=== PATIENT | female | born 1960 | race Caucasian/White ===

== ENCOUNTER → 2020-03-16 | Outpatient (CLI) | payer OTHER, SELFPAY | END | disposition home or self-care (01) | LOC: LABSPEC 17:43 | PROVIDERS: PCP Student in an Organized Health Care Education/Training Program; Referring Provider Registered Nurse; Visit Provider Registered Nurse | DX: Z20.828 Contact with and (suspected) exposure to other viral communicable diseases (principal) | CPT/HCPCS: 87635; G2023; U0003 ==

== ENCOUNTER → 2025-05-14 | Outpatient (CLI) | payer MEDICARE, SELFPAY ==
--- NOTE | 2025-05-14 11:18 | RAD_ITS ---
PROCEDURE: LUMBAR SPINE 2 OR 3 VIEWS 05/14/2025 REASON FOR EXAM: RADICULOPATHY TECHNIQUE: Procedure Code: RADSPLL Modality: DX Procedure: LUMBAR SPINE 2 OR 3 VIEWS COMPARISON: None FINDINGS: There is mild levoconvex curvature of the lumbar spine and mild anterolisthesis of L3 on L4 and minimal retrolisthesis of L4 on L5. There is degenerative disc space narrowing at L4-L5. Sacroiliac and hip joints are grossly intact. Adjacent soft tissues are unremarkable. RAD/Lumbar Spine 2 or 3 Views IMPRESSION: Degenerative disc disease and alignment abnormalities as above. Reading [facility]
--- NOTE | 2025-05-14 11:18 | RAD_ITS ---
PROCEDURE: CERV SPINE 2 OR 3 VIEWS 05/14/2025 REASON FOR EXAM: POST LAMINECTOMY SYNDROME TECHNIQUE: Procedure Code: RADSPCL Modality: DX Procedure: CERV SPINE 2 OR 3 VIEWS COMPARISON: None FINDINGS: There is straightening of the cervical lordosis and multilevel degenerative disc space narrowing, most pronounced between C3 and T1. The patient has had laminectomy between C3 and C6. Prevertebral soft tissues are unremarkable. Lung apices are clear. RAD/Cerv Spine 2 or 3 Views IMPRESSION: Degenerative changes and alignment abnormalities without acute fracture or subl uxation. Reading [facility]
--- NOTE | 2025-05-14 11:18 | RAD_ITS ---
PROCEDURE: HIP, UNI W/ PELVIS 2-3 VIEWS 05/14/2025 REASON FOR EXAM: PAIN TECHNIQUE: Procedure Code: [facility] Modality: DX Procedure: HIP, UNI W/ PELVIS 2-3 VIEWS Laterality: Right COMPARISON: None. FINDINGS: BONES: No acute fracture or focal osseous lesion. Degenerative changes in the imaged lumbar spine. JOINTS: No dislocation. The joint spaces are preserved. SOFT TISSUES: Multiple rounded pelvic calcifications bilaterally, likely phleboliths. RAD/HIP, UNI W/ Pelvis 2-3 Views IMPRESSION: No acute osseous abnormality. Reading Location: [id number]
== END | disposition home or self-care (01) ==
PROVIDERS: PCP Student in an Organized Health Care Education/Training Program; Referring Provider Anesthesiology Pain Medicine; Visit Provider Anesthesiology Pain Medicine
DX: M96.1 Postlaminectomy syndrome, not elsewhere classified (principal)
CPT/HCPCS: 72040; 72100; 73502

== ENCOUNTER → 2025-07-09 | Outpatient (CLI) | payer MEDICARE, SELFPAY ==
--- NOTE | 2025-07-09 10:40 | RAD_ITS ---
PROCEDURE: LUMBAR SPINE 2 OR 3 VIEWS 07/09/2025 REASON FOR EXAM: DDD TECHNIQUE: Procedure Code: RADSPLL Modality: DX Procedure: LUMBAR SPINE 2 OR 3 VIEWS COMPARISON: 05/14/2025 FINDINGS: There is similar levoconvex curvature of the lumbar spine. Degenerative disc space narrowing is again noted most pronounced at L1-L2 and L4-L5. There is similar grade 1 anterolisthesis of L3 on L4 and grade 1 retrolisthesis of L4 on L5. There is no acute fracture. There is likely chronic compression of multiple inferior thoracic vertebral bodies. Sacroiliac and hip joints are grossly intact although the hip joints are incompletely included in the field of view. Adjacent soft tissues are unremarkable. RAD/Lumbar Spine 2 or 3 Views IMPRESSION: Degenerative changes as above. Findings are similar to the previous study. Pr obable chronic thoracic vertebral compression fractures. If there is concern for acute fracture, consider MRI. Reading Location[facility]
== END | disposition home or self-care (01) ==
LOC: RAD 10:37
PROVIDERS: PCP Student in an Organized Health Care Education/Training Program; Referring Provider Anesthesiology Pain Medicine; Visit Provider Anesthesiology Pain Medicine
DX: M51.360 Other intervertebral disc degeneration, lumbar region with discogenic back pain only (principal)
CPT/HCPCS: 72100